=== PATIENT | female | born 1980 | race Caucasian/White ===

== ENCOUNTER 2022-03-16 18:02 | Emergency (ER) | payer OTHER ==
[~2022-03-16] VITALS: Ht 160 cm; Wt 81.6 kg
[2022-03-16 18:15] VITALS: BP 117/66
--- NOTE | 2022-03-16 18:20 | NUR ---
41 Y/O FEMALE BIB SELF C/O HEADACHE X 5 DAYS C/O NAUSE, DIZZINESS,RIGHT EAR, RIGHT EYE PAIN TODAY. BP 117/66 AT THIS TIME. PT DENIES CHEST PAIN, SOB. PT DENIES FEVER OR CHILLS. PMH: DENIES
[2022-03-16] MEDS ORDERED: KETOROLAC 60 MG/2 ML VIAL IM ONE (18:35)
--- NOTE | 2022-03-16 19:20 | NUR ---
Steven sifuentes in ED - 03/16/22 at 1921 by MANGO TRPt report given to LVN. PRATIK. Transfer of care at this time.
--- NOTE | 2022-03-16 19:21 | NUR ---
Pt report given to DIAZ CHRISTIE.. Transfer of care at this time.
[2022-03-16] MEDS ORDERED: IBUP-2213 PO (20:09)
[2022-03-16] MEDS ORDERED: ACET-8386 PO (20:09)
[2022-03-16] MEDS ORDERED: ONDA8TAB87 PO (20:09)
--- NOTE | 2022-03-16 20:29 | NUR ---
Patient discharged with v/s stable. Written and verbal after care instructions given and explained. Patient alert, oriented and verbalized understanding of instructions. Ambulatory with steady gait. All questions addressed prior to discharge. ID band removed. Patient advised to follow up with PMD. Rx of NORCO,ZOFRAN, AND MOTRIN given. Patient educated on indication of medication including possible reaction and side effects. Opportunity to ask questions provided and answered.
== END 2022-03-16 20:29 | disposition home or self-care (01) ==
LOC: MED 18:02
DX: R51.9 Headache, unspecified (principal); R11.0 Nausea
CPT/HCPCS: 81002; 81025; 96372; 99283; J1885

== ENCOUNTER 2022-12-23 18:52 | Emergency (ER) | payer OTHER ==
[~2022-12-23] VITALS: Ht 160 cm; Wt 107.0 kg
[~2022-12-23 18:52] MED LIST: ACET-8905 PO; IBUP-2213 PO; ONDA8TAB87 PO
[2022-12-23 18:58] VITALS: BP 153/74
[2022-12-23] MEDS ORDERED: ACETAMINOPHEN EXTRA STRENGTH 500 MG TAB PO ONE (19:05)
--- NOTE | 2022-12-23 19:07 | NUR ---
COVID, FLU SWABS DONE.
--- NOTE | 2022-12-23 19:07 | NUR ---
PT AMB TO BED 12.
--- NOTE | 2022-12-23 19:35 | NUR ---
Patient resting in bed, A/Ox4, chest rise and fall symmetrical, no s/s of distress.
--- NOTE | 2022-12-23 20:10 | NUR ---
Patient resting in bed, A/Ox4, chest rise and fall symmetrical, no c/o pain or s/s of distress.
[2022-12-23] MEDS ORDERED: BPM/473S78 PO (20:21)
[2022-12-23] MEDS ORDERED: DOXY-690 PO (20:21)
[2022-12-23 20:31] VITALS: BP 128/74
== END 2022-12-23 20:33 | disposition home or self-care (01) ==
LOC: MED 18:52
DX: J18.9 Pneumonia, unspecified organism (principal); Z20.822 Contact with and (suspected) exposure to COVID-19
CPT/HCPCS: 71045; 87426; 87804; 99284; Q0092